=== PATIENT | female | born 2005 | race Two or more races ===

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

== ENCOUNTER → 2025-02-05 | Outpatient (CLI) | payer MEDICAID, SELFPAY ==
--- NOTE | 2025-02-05 09:47 | XR_ITS ---
Examination: Thoracic spine 3 views Technique one AP lateral coned lateral upper dorsal spine 3 views Date and time: February 05, 2025, 10:00 AM INDICATIONS: Upper back pain 2 years. FINDINGS: Thoracolumbar levoscoliosis 7 degrees No thoracic fracture No thoracic disc narrowing Intact pedicles IMPRESSION: No thoracic fracture or arthritic change Thoracolumbar levoscoliosis 7 degrees
--- NOTE | 2025-02-05 09:47 | XR_ITS ---
Examination: Lumbar spine, 5 views Technique: Lumbar spine AP, lateral, coned lateral lower lumbar spine, bilateral obliques 5 views Exam date and time: February 05, 2025, 0950 hours INDICATIONS: Low back pain 2 years. COMPARISON: July 29, 2024 FINDINGS: Lumbar dextroscoliosis 6 degrees No lumbar fracture No lumbar disc narrowing No spondylolisthesis IMPRESSION: No lumbar fracture or arthritic change
== END | disposition home or self-care (01) ==
PROVIDERS: PCP Nurse Practitioner Family; Referring Provider Nurse Practitioner Family; Visit Provider Nurse Practitioner Family
DX: M54.50 Low back pain, unspecified (principal); M41.85 Other forms of scoliosis, thoracolumbar region
CPT/HCPCS: 72072; 72110